=== PATIENT | male | born 1975 | race Caucasian/White ===

== ENCOUNTER 2019-02-19 20:48 | Emergency (ER) | payer OTHER ==
[2019-02-19 21:02] VITALS: BP 114/77; PULSE 65; TEMP 98.9; BMI 30.8
[2019-02-19] MEDS ORDERED: CYCLOBENZAPRINE HCL 10 MG TABLET (FP) PO ONE (21:31)
[2019-02-19] MEDS ORDERED: NAPROXEN 500 MG TABLET (FP) PO ONE (21:31)
[2019-02-19] MEDS ORDERED: CYCLOBENZAPRINE HCL 10 MG TABLET (FP) ONE (21:36)
[2019-02-19] MEDS ORDERED: NAPROXEN 500 MG TABLET (FP) ONE (21:36)
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
== END 2019-02-19 21:40 | disposition home or self-care (01) ==
LOC: FER 20:48
DX: Z04.1 Encounter for examination and observation following transport accident (principal); V43.52XA Car driver injured in collision with other type car in traffic accident, initial encounter; Y93.89 Activity, other specified; Y92.410 Unspecified street and highway as the place of occurrence of the external cause
CPT/HCPCS: 99281-25